=== PATIENT | female | born 1955 | race Caucasian/White ===

== ENCOUNTER → 2016-10-05 | Outpatient (CLI) | payer OTHER ==
[~2016-10-05] MED LIST: ALBUTEROL17 GM INH; CARAFATE PO; DOXYCYCLINE HY100 M1 PO; FLONASE16 GM; FLUCONAZOLE150 M1; GUAIFENESIN-CO480 ML PO; HYDROCHLOROTHIA25 MG PO; METRONIDAZOLE PO; PREDNISONE PO; PROTONIX PO; TENORMIN25 MG PO
--- NOTE | ~2016-10-05 | MR60 ---
[facility] A Service of [facility] & [facility] [place] RADIOLOGY TEXT RESULTS PATIENT: CONCEPCION BAH LOCATION: [facility] : 57 UNIT #: [id number] AGE: [address]: Jose Alberto Taylor DPM SEX: F ORDER DR: [id number] [address] [address] [id number] O MR#: [id number] Acc #: [id number] NAME: CONCEPCION BAH : 1955 SEX: F STUDY DATE/TIME: 10/05/2016 10:53 UNIT: [facility] ROOM: STUDY DESCRIPTION: MR Foot Wo Contrast Lt Attending Physician: Jose Alberto Taylor D.P.M. Referring Physician: Jose Alberto Taylor D.P.M. Ordering Physician: Jose Alberto Taylor D.P.M. Primary Care Physician: Miquel Woods M.D. MRI CENTER REPORT This report is preliminary unless electronic signature is present. EXAM MRI of the left foot without contrast HISTORY 60-year-old female, history of clubfoot deformity. Patient has had multiple prior surgeries. Complains of diffuse hindfoot pain x1 year with swelling. Difficulty walking at times. COMPARISON None. TECHNIQUE Multiplanar multi-echo imaging of the left ankle and hindfoot utilizing a high-field magnet and dedicated protocol. FINDINGS Examination demonstrates deformity of the subtalar joint, may represent a combination of degenerative arthropathy and sequela of prior surgeries and clubfoot deformity. This predominantly involves the posterior subtalar joint with asymmetric joint space narrowing, developing marginal osteophytes and a moderate amount of subchondral edema. No erosive changes are identified. There is also flattening of the talar dome which again may be developmental or congenital but no significant arthropathy of the ankle joint. Susceptibility artifact is seen within the midfoot near the navicular cuneiform articulations and may be related prior instrumentation. There is diffuse thickening of the Achilles tendon with mucinous degeneration of the proximal Achilles tendon. No active tendinopathy. No evidence of tear. 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 Correlate for symptoms referable to sinus tarsi syndrome. Intrinsic foot musculature appears normal. [facility]. [facility] A Service of [facility] RADIOLOGY TEXT RESULTS PATIENT: CONCEPCION BAH LOCATION: [facility] : 57 UNIT #: [id number] AGE: [address]: Jose Alberto Taylor DPM SEX: F ORDER DR: IMPRESSION 1. 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 This may be due to a combination of preexisting deformity from clubfoot as well as secondary degenerative arthropathy. No findings to suggest an inflammatory arthropathy. 2. Poor visualization of the sinus tarsi, again may be related to a preexisting congenital deformity or postsurgical change. 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 3. 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 Dictated by... Helen Dickey M.D. THIS IS AN ELECTRONICALLY VERIFIED REPORT Helen Dickey M.D. at 10/08/2016 7:40 AM ELIS/mati TD: 10/05/2016 19:25 JOB #: [id number] MRI CENTER REPORT
== END | disposition home or self-care (01) ==
LOC: SMRI 10:18
DX: M79.672 Pain in left foot (principal); M21.962 Unspecified acquired deformity of left lower leg; M76.62 Achilles tendinitis, left leg
CPT/HCPCS: 73718